=== PATIENT | male | born 1955 | race Asian ===

== ENCOUNTER → 2017-02-15 | Outpatient (CLI) | payer BC ==
--- NOTE | 2017-02-15 17:09 | Diagnostic Imaging Report ---
Indication: Right foot injury 3 views of the right foot show no fracture, dislocation or other acute abnormalities. Impression: Negative right foot Dictated by: Dictated on workstation # [id number]
== END ==
LOC: RAD 16:23
PROVIDERS: ATTEND Family Medicine
DX: M79.671 Pain in right foot (principal)
CPT/HCPCS: 36415; 73630; 84550